=== PATIENT | male | born 1935 | race Caucasian/White ===

== ENCOUNTER 2017-04-11 15:15 | Emergency (ER) | payer OTHER ==
--- NOTE | 2017-04-11 15:50 | EDPHY ---
H & P HPI/ROS: HPI CHIEF COMPLAINT: Right wrist pain. HISTORY OF PRESENT ILLNESS: This patient very pleasant 81-year-old male he presents emergency room with right wrist pain. He states been present for approximately 20 hrs it started around 7:00 p.m. last night. He does not recall any injury. He has not had any fever. There is no signs of trauma on his wrist. There is no swelling redness or warmth. He complains of focal point tenderness over the palmar side of his wrist. Specifically over the tendon. I do not appreciate any warmth or redness. He is otherwise neurovascularly intact. It hurts with movement of his fingers. The pain does shoot into his hand and then up to his arm. He denies any chest pain or shortness of breath. He is able to move his wrist but has pain. Also when you press slightly over the flexor tendons he has tenderness. More on the ulnar side. Pain is currently 6/10. He has been taking morphine. He is unable to take NSAIDs due to underlying Crohn's disease. Past Medical History: Crohn disease Past Surgical History: No recent surgery Social History: Lives locally denies drugs alcohol tobacco. Family History: Noncontributory ROS REVIEW OF SYSTEMS: A comprehensive 10 point review of systems is otherwise negative aside from elements mentioned in the history of present illness. Exam Constitutional triage nursing summary reviewed, vital signs reviewed, awake/ alert. Eyes normal conjunctivae and sclera, EOMI, PERRLA. HENT normal inspection, atraumatic, moist mucus membranes, no epistaxis, neck supple/ no meningismus, no raccoon eyes. Respiratory clear to auscultation bilaterally, normal breath sounds, no respiratory distress, no wheezing. Cardiovascular rate normal, regular rhythm, no murmur, no edema, distal pulses normal. Gastrointestinal soft, non-tender, no rebound, no guarding, normal bowel sounds, no distension, no pulsatile mass. Genitourinary no CVA tenderness. Musculoskeletal R Wrist: Good parts control clerk strength. Neurovascularly intact. Good radial pulse. Focal tenderness over the flexor tendons ulnar side of his wrist. Consistent most likely acute tendinitis no warmth. No redness. No swelling. No signs of trauma. Good parts control clerk strength. No weakness. full range of motion, no calf swelling, no tenderness of extremities, no meningismus, good pulses, neurovascularly intact. Skin pink, warm, & dry, no rash, skin atraumatic. Neurologic awake, alert and oriented x 3, AAOx3, moves all 4 extremities equally, motor intact, sensory intact, CN II-XII intact, normal cerebellar, normal vision, normal speech. Psychiatric normal mood/affect. Heme/Lymph/Immune no lymphadenopathy. Differential Diagnosis: Includes but is not limited to in a particular order acute tendinitis, gout, pseudogout, arthritis, doubt septic joint given focal tenderness no warmth, no fever, no redness, carpal tunnel syndrome Medical Decision Making: Plan for this patient x-ray right wrist will bony abnormality, and then Velcro wrist splint for comfort. Will prescribe limited supply of oxycodone for pain control. Recommend close follow-up with Orthopedics. He understands. Re-evaluation: X-ray right wrist is been reviewed. I do not appreciate acute fracture. Updated patient about his x-ray results. Additionally possible pseudogout. Recommend close follow-up with Orthopedics. Velcro wrist splint for comfort. Oxycodone for pain control. He understands return emergency room if he has worsening symptoms questions or concerns. No evidence of septic joint on exam. I do not feel that he needs a wrist tap this time. He has focal tenderness over the flexor tendon most likely consistent with tendinitis. Source: Patient Constitutional: Initial Vital Signs Temperature (C) 37 C 04/11/17 15:47 Heart Rate 76 04/11/17 15:47 Respiratory Rate 16 04/11/17 15:47 Blood Pressure 126/80 H 04/11/17 15:47 O2 Sat (%) 97 04/11/17 15:47 O2 Delivery Mode Room Air Allergies/Adverse Reactions: albuterol Allergy (Verified 04/11/17 16:13) Androgenic Anabolic Steroid Allergy (Verified 04/11/17 16:37) aspirin Allergy (Verified 04/11/17 16:16) dutasteride [From Avodart] Allergy (Verified 04/11/17 16:00) flecainide Allergy (Verified 04/11/17 16:34) influenza virus vaccine, specific Allergy (Verified 04/11/17 16:35) ketorolac [From Toradol] Allergy (Verified 04/11/17 16:36) levothyroxine Allergy (Verified 04/11/17 16:35) NSAIDS (Non-Steroidal Anti-Inflamma Allergy (Verified 04/11/17 16:16) scopolamine Allergy (Verified 04/11/17 16:35) vardenafil [From Levitra] Allergy (Verified 04/11/17 16:00) Home Medications: Medication Instructions Recorded Diltiazem 04/11/17 Lisinopril 04/11/17 morphINE SR 04/11/17 oxyCODONE HCL [Oxycodone HCl] 5 mg PO BID #10 tablet 04/11/17 Medical Decision Making - Diagnostics Imaging Results: Imaging Impressions Wrist X-Ray 04/11/17 16:02 Impression: 1. 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 2. No fracture or bone lesion. Departure - Departure Disposition: Home, Routine, Self-Care Clinical Impression: Tendonitis Condition: Good Instructions: Wrist Injury (ED), Arthralgia (ED), Tendinitis (ED) Additional Instructions: 1. Stay in your splint for comfort. 2. Return to the emergency room if there is worsening pain questions or concerns. 3. I do recommend he follow up with Orthopedics. Call for an appointment next few days. 4. Oxycodone for pain control. This medication can make you sleepy. Do not drive while taking this medication. Referrals: Solomon Carrillo MD [Primary Care Provider] - As per Instructions Chencho Anders MD [Medical Doctor] - As per Instructions Prescriptions: oxyCODONE HCL [Oxycodone HCl] 5 mg PO BID #10 tablet
[2017-04-11 15:51] VITALS: RESP 16; TEMP 98.6; O2SAT 97
[2017-04-11] MEDS ORDERED: ACETAMINOPHEN 500 MG TAB PO ONE (16:54)
[2017-04-11 18:27] VITALS: BP 130/76; PULSE 75
== END 2017-04-11 17:20 | disposition home or self-care (01) ==
LOC: CED 15:15
DX: M77.8 Other enthesopathies, not elsewhere classified (principal)
CPT/HCPCS: 73110; 99283; L3807